=== PATIENT | female | born 1945 | race Caucasian/White ===

== ENCOUNTER 2017-07-19 13:28 | Emergency (ER) | payer OTHER, BC ==
[2017-07-19 13:40] VITALS: TEMP 98.1
--- NOTE | 2017-07-19 14:49 | EDPHY ---
H & P Stated Complaint: Lifting stuff on Monday;now has soreness back that increases w /inspiration HPI/ROS: HPI CHIEF COMPLAINT: Back pain, anterior thoracic wall chest pain, worse with breathing in. HISTORY OF PRESENT ILLNESS: This patient very pleasant 71-year-old female significant past medical history for thyroid disease, she presents emergency room with pain located paravertebral down her cervical and thoracic spine additionally she has anterior chest wall pain when she breathes in. She denies chest pain at rest. Denies a dull ache. She describes the pain is rather sharp. She states this all started on Monday she woke up in bed Monday morning could barely get out of bed as she moved she developed discomfort throughout her chest and back. Associated with movement only. She took some aspirin and the discomfort got better and then noticed some further pain on Monday and then today. It is worse any time she moves or goes to sit up. Additionally the pain is worse when she takes a deep breath in. She decided come the emergency room as the discomfort has been going on for 3 days. However she reports that on Monday she was lifting furniture and heavy boxes all day as her house is getting red debated. She thinks this may have exacerbated her back pain and thoracic pain as she noticed discomfort on Monday when she woke up. Current we she denies chest pain. She does admit that when she takes deep breath in it hurts her back and chest wall anteriorly. She is comfortable when she lays down and does not move if she goes to sit up removed with truncal axial movements she gets discomfort. Patient reports no history of cardiac disease or thromboembolic disease. Past Medical History: Thyroid disease, concussion Past Surgical History: Denies recent surgery. Social History: Denies daily use of drugs alcohol tobacco. Family History: Noncontributory. ROS REVIEW OF SYSTEMS: A comprehensive 10 point review of systems is otherwise negative aside from elements mentioned in the history of present illness. Exam Constitutional appears well nontoxic, triage nursing summary reviewed, vital signs reviewed, awake/alert. Eyes normal conjunctivae and sclera, EOMI, PERRLA. HENT normal inspection, atraumatic, moist mucus membranes, no epistaxis, neck supple/ no meningismus, no raccoon eyes. Respiratory clear to auscultation bilaterally, normal breath sounds, no respiratory distress, no wheezing. Cardiovascular rate normal, regular rhythm, no murmur, no edema, distal pulses normal. Gastrointestinal soft, non-tender, no rebound, no guarding, normal bowel sounds, no distension, no pulsatile mass. Genitourinary no CVA tenderness. Musculoskeletal tender palpation paravertebral thoracic spine no midline thoracic spine pain, with truncal movement she he she has significant discomfort in her back and anterior chest wall. With abduction of both arms against resistance this gives her great deal discomfort in her bilateral trapezius regions as well as her anterior chest wall. full range of motion, no calf swelling, no tenderness of extremities, no meningismus, good pulses, neurovascularly intact. Skin pink, warm, & dry, no rash, skin atraumatic. Neurologic awake, alert and oriented x 3, AAOx3, moves all 4 extremities equally, motor intact, sensory intact, CN II-XII intact, normal cerebellar, normal vision, normal speech. Psychiatric normal mood/affect. Heme/Lymph/Immune no lymphadenopathy. Differential Diagnosis: Includes but is not limited to in a particular order thoracic chest wall pain, pneumothorax, rib fractures, musculoskeletal contusion , musculoskeletal strain, back strain Medical Decision Making: Plan for this patient two view chest x-ray, obtain EKG , playground monitor basic blood work, Toradol IV to see if this improves her discomfort, IV fluid bolus. Re-evaluate. Re-evaluation: EKG interpretation by me on record in [employer] system. Impression time of EKG 1541, this is sinus rhythm rate of 80 there is no acute ischemic change appreciated. Specifically no ST elevation. No ST depression. No T-wave abnormalities. No signs of cardiac arrhythmia. Unremarkable EKG. Lengthy discussion with this patient about her pleuritic pain. Her D-dimer is negative however she does complain of pleuritic pain goes to her back and I wonder about aortic disease. She is not having chest pain or EKG is nonischemic. Troponin negative. I discussed risk versus benefit about CT angiogram of her chest. She agrees we should do a CT angiogram of her chest it is noted her BNP is slightly elevated. She will follow up with her outpatient physician or Cardiology for this. She has no signs of heart failure as she denies shortness of breath swelling or edema. 1723: Patient is feeling much better after IV fentanyl. She is able sit up and does not have significant musculoskeletal pain. I did re-evaluate her she is resting comfortably no acute distress. I discussed at length about her CT scan findings. Which includes her dilatation of her ascending aorta pericardial thickening versus small pericardial effusion. She understands she should follow up with Cardiology in the next 2 weeks. For most likely echocardiogram. She has also never had a stress test. I do recommend that she gets this done given her age. She has no chest pain or shortness of breath at this time. Her pain is consistent musculoskeletal nature. Will provide ibuprofen and Flexeril. And return precautions have been given. Referral to promotions manager as well. She understands return emergency room she develops any worsening chest pain, shortness of breath vomiting fever questions or concerns. Source: Patient - Personal History Current Tetanus Diphtheria and Acellular Pertussis (TDAP): Unsure - Medical/Surgical History Other PMH: thyroid. concussion Constitutional: Initial Vital Signs Temperature (C) 36.7 C 07/19/17 13:35 Heart Rate 88 07/19/17 13:35 Respiratory Rate 18 07/19/17 13:35 Blood Pressure 133/84 H 07/19/17 13:35 O2 Sat (%) 98 07/19/17 13:35 O2 Delivery Mode Room Air Allergies/Adverse Reactions: Sulfa (Sulfonamide Antibiotics) Allergy (Intermediate, Verified 07/19/17 13:36) Hives Home Medications: Medication Instructions Recorded Cyclobenzaprine [Flexeril 10 MG 10 mg PO TID PRN #15 tab 07/19/17 (*)] Ibuprofen [Motrin (*)] 800 mg PO Q6-8PRN #10 tab 07/19/17 Levothyroxine [Synthroid 100 mcg 100 mcg PO DAILY06 07/19/17 (*)] Venlafaxine HCl [Venlafaxine 25MG 07/19/17 (*)] Medical Decision Making - Diagnostics Imaging Results: Imaging Impressions Chest X-Ray 07/19/17 14:59 Impression: Airways disease. Chest/Thorax CTA 07/19/17 16:02 Impression: 1. No evidence of pulmonary embolus using CT protocol. 2. Mild dilatation of the ascending aorta measuring 4 cm. 3. Pericardial thickening versus small pericardial effusion. 4. Mild dependent edema at the lung bases with small left effusion. Consider mild fluid overload. Findings discussed with Randell Rock MD at 17:12 hour, 07/19/2017. - Data Points Laboratory Results: Laboratory Results 07/19/17 14:06 07/19/17 14:06 07/19/17 07/19/17 07/19/17 14:06 14:06 14:06 WBC 8.18 10^3/uL 10^3/uL (3.80-9.50) RBC 4.56 10^6/uL 10^6/uL (4.18-5.33) Hgb 15.5 g/dL g/dL (12.6-16.3) Hct 44.5 % % (38.0-47.0) MCV 97.6 fL fL (81.5-99.8) MCH 34.0 pg pg (27.9-34.1) MCHC 34.8 g/dL g/dL (32.4-36.7) RDW 12.7 % % (11.5-15.2) Plt Count 266 10^3/uL 10^3/uL (150-400) MPV 10.0 fL fL (8.7-11.7) Neut % (Auto) 61.6 % % (39.3-74.2) Lymph % (Auto) 23.6 % % (15.0-45.0) [place] % (Auto) 12.7 % % (4.5-13.0) Eos % (Auto) 0.9 % % (0.6-7.6) Baso % (Auto) 0.7 % % (0.3-1.7) Nucleat RBC Rel Count 0.0 % % (0.0-0.2) Absolute Neuts (auto) 5.04 10^3/uL 10^3/uL (1.70-6.50) Absolute Lymphs (auto) 1.93 10^3/uL 10^3/uL (1.00-3.00) Absolute Monos (auto) 1.04 10^3/uL H 10^3/uL (0.30-0.80) Absolute Eos (auto) 0.07 10^3/uL 10^3/uL (0.03-0.40) Absolute Basos (auto) 0.06 10^3/uL 10^3/uL (0.02-0.10) Absolute Nucleated RBC 0.00 10^3/uL 10^3/uL (0-0.01) Immature Gran % 0.5 % % (0.0-1.1) Immature Gran # 0.04 10^3/uL 10^3/uL (0.00-0.10) PT 12.6 SEC SEC (12.0-15.0) INR 0.95 (0.83-1.16) APTT 28.1 SEC SEC (23.0-38.0) D-Dimer 0.27 ug/mLFEU ug/mLFEU (0.00-0.50) Sodium 140 mEq/L mEq/L (134-144) Potassium 3.8 mEq/L mEq/L (3.5-5.2) Chloride 101 mEq/L mEq/L (97-110) Carbon Dioxide 27 mEq/l mEq/l (22-31) Anion Gap 12 mEq/L mEq/L (8-16) BUN 9 mg/dL mg/dL (7-23) Creatinine 0.7 mg/dL mg/dL (0.6-1.0) Estimated GFR > 60 Glucose 120 mg/dL H mg/dL (70-100) Calcium 9.7 mg/dL mg/dL (8.5-10.4) Magnesium 2.1 mg/dL mg/dL (1.6-2.3) Total Bilirubin 0.7 mg/dL mg/dL (0.1-1.4) Conjugated Bilirubin 0.2 mg/dL mg/dL (0.0-0.5) Unconjugated Bilirubin 0.5 mg/dL mg/dL (0.0-1.1) AST 22 IU/L IU/L (14-46) ALT 39 IU/L IU/L (9-52) Alkaline Phosphatase 70 IU/L IU/L (38-126) Creatine Kinase 24 IU/L IU/L (0-156) CK-MB (CK-2) Fraction 0.44 ng/mL ng/mL (0.00-3.19) Troponin I < 0.012 ng/mL ng/mL (0.000-0.034) NT-Pro-B Natriuret Pep 1030 pg/mL H pg/mL (0-125) Total Protein 7.4 g/dL g/dL (6.3-8.2) Albumin 4.4 g/dL g/dL (3.5-5.0) Lipase 43 IU/L IU/L (23-300) Medications Given: Discontinued Medications Fentanyl (Sublimaze) 50 mcg IVP EDNOW ONE Stop: 07/19/17 16:03 Last Admin: 07/19/17 16:19 Dose: 50 mcg Sodium Chloride (Ns) 1,000 mls @ 0 mls/hr IV EDNOW ONE; Wide Open PRN Reason: Protocol Stop: 07/19/17 14:59 Last Admin: 07/19/17 15:24 Dose: 1,000 mls Ketorolac Tromethamine (Toradol) 15 mg IVP EDNOW ONE Stop: 07/19/17 15:00 Last Admin: 07/19/17 15:24 Dose: 15 mg Ondansetron HCl (Zofran) 4 mg IVP EDNOW ONE Stop: 07/19/17 16:03 Last Admin: 07/19/17 16:19 Dose: 4 mg Departure - Departure Disposition: Home, Routine, Self-Care Clinical Impression: Musculoskeletal pain Condition: Good Instructions: Musculoskeletal Pain (ED), Thoracic Pain (ED) Additional Instructions: 1.Return emergency room if develops any worsening symptoms includes shortness of breath, chest pain, vomiting, fever. 2. Please follow up with Cardiology please call their make an appointment. 3. Take Tylenol Motrin for pain Flexeril for muscle relaxation. Referrals: COLTON DAVEIS [Other] - As per Instructions Flynn Myers MD [Medical Doctor] - As per Instructions Prescriptions: Cyclobenzaprine [Flexeril 10 MG (*)] 10 mg PO TID PRN #15 tab PRN Reason: Spasms Ibuprofen [Motrin (*)] 800 mg PO Q6-8PRN #10 tab
[2017-07-19] MEDS ORDERED: NS 1,000 ML IV ONE (14:58)
[2017-07-19] MEDS ORDERED: KETOROLAC 15 MG/1 ML SDV IVP ONE (14:59)
[2017-07-19 15:07] LABS: % IMMATURE GRANULYOCYTES 0.5 % (0.0-1.1); ABSOLUTE IMMATURE GRANULOCYTES 0.04 10^3/uL (0.00-0.10); ADD DIFF? NO; ADD MORPH? NO; ADD SCAN? NO; ATYPICAL LYMPHOCYTE FLAG 0 (0-99); FRAGMENT RBC FLAG 0 (0-99); HEMATOCRIT 44.5 % (38.0-47.0); HEMOGLOBIN 15.5 g/dL (12.6-16.3); LEFT SHIFT FLG 10 (0-99); LIPEMIA HEMOLYSIS FLAG 90 (0-99); MEAN CELL HEMOGLOBIN CONCENTR. 34.8 g/dL (32.4-36.7); MEAN CELL VOLUME 97.6 fL (81.5-99.8); PLATELET CLUMPS FLAG 0 (0-99); PLATELET COUNT 266 10^3/uL (150-400); RED BLOOD CELL COUNT 4.56 10^6/uL (4.18-5.33); RED CELL DISTRIBUTION WIDTH 12.7 % (11.5-15.2)
[2017-07-19 15:13] LABS: ALANINE AMINOTRANSFERASE 39 IU/L (9-52); ALBUMIN 4.4 g/dL (3.5-5.0); ALKALINE PHOSPHATASE 70 IU/L (38-126); ANION GAP 12 mEq/L (8-16); ASPARTATE AMINOTRANSFERASE 22 IU/L (14-46); BILIRUBIN,TOTAL 0.7 mg/dL (0.1-1.4); BILIRUBIN-CONJUGATED 0.2 mg/dL (0.0-0.5); BILIRUBIN-UNCONJUGATED 0.5 mg/dL (0.0-1.1); CALCIUM 9.7 mg/dL (8.5-10.4); CARBON DIOXIDE 27 mEq/l (22-31); CHLORIDE 101 mEq/L (97-110); CREATININE 0.7 mg/dL (0.6-1.0); GLOMERULAR FILTRATION RATE > 60; GLUCOSE 120 mg/dL (70-100); MAGNESIUM 2.1 mg/dL (1.6-2.3); POTASSIUM 3.8 mEq/L (3.5-5.2); SODIUM 140 mEq/L (134-144); TOTAL PROTEIN 7.4 g/dL (6.3-8.2)
[2017-07-19 15:18] LABS: INR 0.95 (0.83-1.16); PROTIME(PATIENT) 12.6 SEC (12.0-15.0)
[2017-07-19 15:19] LABS: APTT 28.1 SEC (23.0-38.0)
[2017-07-19 15:25] LABS: CREATINE KINASE-MB FRACTION 0.44 ng/mL (0.00-3.19); TROPONIN I < 0.012 ng/mL (0.000-0.034)
--- NOTE | 2017-07-19 15:44 | CPEKG ---
Heart Rate: 80 RR Interval: 750 P-R Interval: 152 QRSD Interval: 76 QT Interval: 380 QTC Interval: 439 P [place]: 37 QRS [place]: 13 T Wave [place]: 23 EKG Severity - NORMAL ECG - EKG Impression: SINUS RHYTHM Electronically Signed By: Ariel Pappas 19-Jul-2017 20:58:51
[2017-07-19] MEDS ORDERED: fentaNYL 100 MCG/2 ML INJ IVP ONE (16:02)
[2017-07-19] MEDS ORDERED: ONDANSETRON 4 MG/2 ML VIAL IVP ONE (16:02)
[2017-07-19] MEDS ORDERED: IOPAMIDOL (ISOVUE 370) 100 ML BTL IV ONE (16:15)
[2017-07-19 16:25] VITALS: RESP 16
[2017-07-19 17:36] VITALS: BP 119/70; PULSE 88; O2SAT 100
== END 2017-07-19 17:35 | disposition home or self-care (01) ==
DX: M79.1 Myalgia (principal); E86.9 Volume depletion, unspecified
CPT/HCPCS: 71020; 71275; 93005; 96361; 96374; 96375; 99285; J1885; J2405; J3010; Q9967

== ENCOUNTER → 2018-08-02 | Outpatient (CLI) | payer OTHER | LOC: FIMAGING 17:40 | PROVIDERS: ATTEND Psychiatry & Neurology Neurology | DX: R47.01 Aphasia (principal) ==